=== PATIENT | male | born 1970 | race Two or more races ===

== ENCOUNTER 2024-08-31 13:10 | Outpatient (AMB) | payer MEDICAID, SELFPAY ==
[2024-08-31 13:42] VITALS: BP 145/94; PULSE 72; RESP 18; TEMP 36.7; O2SAT 97; BMI 28.7
--- NOTE | 2024-08-31 13:42 | ORTHONT_ITS ---
Vital signs 08/31/24 13:42 Height 1.78 m Height Method Stated Weight 90.718 kg Weight Measurement Method Standing Scale BMI 28.7 BP 145/94 H Blood Pressure Source Automatic Cuff Blood Pressure Location Right Upper Arm Position Sitting Respiration 18 Pulse 72 Pulse Source Monitor Temp 98.0 F Temp Source Temporal Artery Scan Pulse Oximetry (%) 97 Oxygen Delivery Method Room Air Med/Allergies Allergies & Medications Allergies No Known Allergies Allergy (Verified 08/31/24 13:43) Medication Reconciliation diclofenac sodium 1 % topical gel (Aleve (diclofenac)) 2 g topical QID #100 grams 08/31/24 [Rx] meloxicam 7.5 mg tablet 7.5 mg PO QDAY PRN pain #45 tabs 08/31/24 [Rx] Subjective Visit Visit for: new patient and knee (RIGHT) Immunization / Flu Flu Vaccine in the Last 12 Months: No Flu Vaccine Exclusion Criteria: No Exclusion Criteria History of Present Illness Chief complaint: RIGHT KNEE CHONDOMALACIA Patient is a pleasant 53-year-old male who presents today for evaluation of his right knee. He has had knee pain for over a year that is worsened in the last 3 months. He had an MRI and x-rays. He reports that he has had anti-inflammator ies including diclofenac. He has also tried tramadol. 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 Exam Exam Patient is in no acute distress and is cooperative with the examination today. Breathing is nonlabored. Patient has a normal mood and affect. Bilateral extremities were evaluated and demonstrates sensation intact to light touch. Palpable pedal pulses are present. No significant edema is present. Bilateral hips were examined. The patient has no pain with log roll of the hips. Internal rotation to 30 degrees and external rotation to 30 degrees is painless. Negative FADIR. Left knee was examined today. The left knee is in reasonable alignment. Range of motion from 0-120 degrees. Knee is stable to varus and valgus as well as AP translation with <5mm. Patient has a negative McMurrays. There is no pain with patellofemoral compression and no crepitus noted. The knee is nontender to palpation. The right knee was also examined. The right knee is in [varus] alignment. Range of motion from [0-115] degrees. Knee is stable to varus and valgus as well as AP translation with <5mm. Patient has a [negative] McMurrays. There is [no] pain with patellofemoral compression and [no] crepitus noted. The knee is [tender] to palpation [medially]. Patient has an MRI which demonstrates focal areas of grade 4 chondral changes in the medial femoral condyle. He has no evidence of a meniscal tear Assessment and Plan Problem List (1) Arthritis of right knee: Status: Acute Plan: 53-year-old male with right knee pain and right knee arthritis. Is an MRI that demonstrates chondral changes. We will obtain a weightbearing x-ray to better evaluate this. He reports the pain is significantly limiting him. We will get weightbearing x-rays and go from there Office Procedures GNS Level of Care Nursing/Assessment Patient Status: Initial/New Patient Nursing Assessment/Reassesment: Medication Reconciliation, Update PMH in EMR and Vital Signs Coordination of Care: Complex Care and Chronic Disease 1-5, Education Complex Pt/Fam, Consent,records obtained, informed consent, 1 Ins Authorization, Lab and Imaging orders, Results/Orders obtained and Staff clarify orders Special Needs: Language special needs New Patient Charge New Patient Point Assignment: 1124 New Patient Point Charge: [employer]CE SENIOR OFFICER Level 4 ([id number]) Past Medical History Past Medical History Have you ever been diagnosed with any of the following: Respiratory Problems Smoking: No Smoking Exposure: No
== END 2024-08-31 13:55 | disposition home or self-care (01) ==
PROVIDERS: PCP Family Medicine; Referring Provider Family Medicine; Supervising Provider Orthopaedic Surgery Adult Reconstructive Orthopaedic Surgery; Visit Provider Orthopaedic Surgery Adult Reconstructive Orthopaedic Surgery
DX: M17.11 Unilateral primary osteoarthritis, right knee (principal); M25.561 Pain in right knee
CPT/HCPCS: 99204; G0463

== ENCOUNTER 2024-09-18 11:39 | Outpatient (AMB) | payer MEDICAID, SELFPAY ==
--- NOTE | 2024-09-18 11:34 | ORTHONT_ITS ---
Med/Allergies Allergies & Medications Allergies No Known Allergies Allergy (Verified 09/18/24 11:34) Medication Reconciliation diclofenac sodium 1 % topical gel (Aleve (diclofenac)) 2 g topical QID #100 grams 08/31/24 [Rx Confirmed 09/18/24] meloxicam 7.5 mg tablet 7.5 mg PO QDAY PRN pain #45 tabs 08/31/24 [Rx Confirmed 09/18/24] Subjective Visit Visit for: follow up visit and x-rays Immunization / Flu Flu Vaccine in the Last 12 Months: No Flu Vaccine Exclusion Criteria: Refused by Patient History of Present Illness Chief complaint: F/U XRAYS Patient is a pleasant 53-year-old male who presents today for evaluation of his right knee. He has had knee pain for over a year that is worsened in the last 3 months. He had an MRI and x-rays. He reports that he has had anti- inflammatories including diclofenac. He has also tried tramadol. 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 Assessment and Plan Problem List (1) Arthritis of right knee: Status: Acute Plan: 53-year-old male with right knee pain and right knee arthritis. We reviewed his x-rays. He has mild to moderate arthritis with joint space narrowing. We discussed nonoperative treatment. I would recommend cortisone injections or physical therapy. We will start him with therapy Office Procedures GNS Level of Care Nursing/Assessment Patient Status: Established Patient Nursing Assessment/Reassesment: Medication Reconciliation, Update PMH in EMR and Vital Signs Coordination of Care: Complex Care and Chronic Disease 1-5, Education Complex Pt/Fam, Consent,records obtained, informed consent, Results/Orders obtained and Staff clarify orders Special Needs: Language special needs Established Patient Charge Established Patient Point Assignment: 95 Telehealth Telemed Phone/Video with patient at home & Dr,PA,CLASSIFIED AD CLERK: Yes
== END 2024-09-18 11:39 | disposition home or self-care (01) ==
LOC: HODSRG 11:39
PROVIDERS: PCP Family Medicine; Referring Provider Family Medicine; Supervising Provider Orthopaedic Surgery Adult Reconstructive Orthopaedic Surgery; Visit Provider Orthopaedic Surgery Adult Reconstructive Orthopaedic Surgery
DX: M17.11 Unilateral primary osteoarthritis, right knee (principal); M25.561 Pain in right knee; M25.861 Other specified joint disorders, right knee
CPT/HCPCS: 99212; G0463